=== PATIENT | male | born 1930 | race Caucasian/White ===

== ENCOUNTER → 2016-12-29 | Outpatient (CLI) | payer OTHER, MEDICARE | LOC: BHLMT 10:00 | PROVIDERS: ATTEND Internal Medicine Cardiovascular Disease | DX: I35.1 Nonrheumatic aortic (valve) insufficiency (principal); I34.0 Nonrheumatic mitral (valve) insufficiency; I36.1 Nonrheumatic tricuspid (valve) insufficiency | CPT/HCPCS: 93306-PO ==

== ENCOUNTER 2017-05-13 09:10 | Inpatient (IN) | payer OTHER, MEDICARE ==
[2017-05-13] MEDS ORDERED: ASPIRIN EC 325 MG TAB PO ONE ×2 (09:14→09:36)
[2017-05-13] MEDS ORDERED: DIAZEPAM 5 MG TAB PO ONE (09:14)
[2017-05-13] MEDS ORDERED: NS 1,000 ML IV ONE (09:14)
[2017-05-13] MEDS ORDERED: FAMOTIDINE 20 MG TAB PO ONE (09:14)
[2017-05-13] MEDS ORDERED: diphenhydrAMINE 25 MG CAP PO ONE ×2 (09:14→09:36)
--- NOTE | 2017-05-13 09:34 | CPEKG ---
Heart Rate: 52 RR Interval: 1154 P-R Interval: 180 QRSD Interval: 112 QT Interval: 412 QTC Interval: 384 P [place]: 63 QRS [place]: -36 T Wave [place]: -1 EKG Severity - ABNORMAL ECG - EKG Impression: SINUS RHYTHM EKG Impression: MULTIFORM VENTRICULAR PREMATURE COMPLEXES EKG Impression: NONSPECIFIC IVCD WITH LAD EKG Impression: LOW VOLTAGE IN FRONTAL LEADS Electronically Signed By: Dalton Schneider 13-May-2017 16:05:58
[2017-05-13] MEDS ORDERED: FAMOTIDINE 20 MG TAB ONE (09:36)
[2017-05-13] MEDS ORDERED: DIAZEPAM 5 MG TAB ONE (09:37)
[2017-05-13 09:52] LABS: PLATELET COUNT 185 10^3/uL (150-400)
[2017-05-13 10:03] LABS: INR 1.12 (0.83-1.16); PROTIME(PATIENT) 14.6 SEC (12.0-15.0)
--- NOTE | 2017-05-13 11:18 | PDPROPOC ---
Sedation Plan of Care Sedation Plan of Care: vital signs stable, mental status noted, patient educated of risks, benefits, alternatives, patient can tolerate sedation ASA Classification: ASA 2 Planned drugs: fentanyl, midazolam Mallampati Score: Class 2 Mallampati Reference Image: Patient passed 3-3-2 rule?: Yes
--- NOTE | 2017-05-13 11:18 | PDHPUP ---
History & Physical Update H&P update statement: This history and physical update is based on an assessment of the patient which was completed after admission or registration (within 24 hours), but prior to the surgery/procedure. H&P update: H&P reviewed & patient examined, no change in patient's condition since H&P completed
[2017-05-13] MEDS ORDERED: LIDOCAINE 1% 300 MG/30 ML SDV ONE (11:33)
[2017-05-13] MEDS ORDERED: fentaNYL 100 MCG/2 ML INJ ONE (11:33)
[2017-05-13] MEDS ORDERED: MIDAZOLAM 2 MG/2 ML VIAL ONE ×2 (11:34)
[2017-05-13] MEDS ORDERED: IOPAMIDOL (ISOVUE-370) 150 ML BTL IV ONE ×2 (11:34→12:08)
--- NOTE | 2017-05-13 13:12 | CPIP ---
[f rep st] INVASIVE CARDIAC PROCEDURE DATE OF PROCEDURE: 05/13/2017 PROCEDURES: 1. Coronary angiography. 2. Left ventriculography. 3. Right heart catheterization. INDICATION: Preoperative evaluation prior to open heart surgery. ACCESS: The patient was prepped and draped in a sterile fashion. 1% lidocaine was used to anestheti ze the right inguinal region. A 6-Malagasy introducer sheath was placed selectively in the right commo n femoral artery via modified Seldinger technique. A 7-Malagasy introducer sheath was placed selective ly in the right common femoral vein via modified Seldinger technique. CORONARY ANGIOGRAPHY: A 6-Malagasy JL4.5 catheter was advanced into the left main coronary artery and images obtained. The left main coronary artery trifurcated into the LAD, ramus, and circumflex coron leah arteries. The left main coronary artery appeared to have an ostial 50% stenosis present. The le ft anterior descending coronary artery had mild diffuse disease in the proximal and mid segments. In the proximal segment, there was a segmental 20% to 30% stenosis present. The ramus coronary artery was a moderate-sized vessel. The ramus coronary artery appeared normal. The circumflex coronary art kathya was nondominant. The circumflex coronary artery had a single discrete 40% to 50% stenosis in the mid vessel. A 6-Malagasy JR4 was advanced into the right coronary artery and images obtained. The ri ght coronary artery was dominant. The right coronary artery had an eccentric 50% to 70% stenosis in the mid vessel. LEFT VENTRICULOGRAPHY: A 6-Malagasy pigtail catheter was advanced into the left ventricle and images o btained. The left ventricle was normal in size, with normal systolic function. The estimated ejecti on fraction was 65%. RIGHT HEART CATHETERIZATION: A right heart catheter was advanced into the right atrium and the press ure obtained. The right atrial pressure was 7 mmHg. The catheter was then advanced into the right v entricle and the pressure obtained. The right ventricular pressure was 36/8 mmHg. The catheter was then advanced into the pulmonary artery and the pressure obtained. The pulmonary artery pressure was 39/9 mmHg. The catheter was then advanced in the wedge position and pressure obtained. The pulmona ry capillary wedge pressure was 14 mmHg. The cardiac output was 6.19. The cardiac index was 3.3. COMPLICATIONS: None. CONCLUSIONS: 1. 50% ostial left main. 2. 40% to 50% stenosis in the mid circumflex coronary artery. 3. 50% to 70% stenosis in the mid right coronary artery. 4. Normal left ventricular size and systolic function. 5. No evidence of pulmonary hypertension on right heart catheterization. 6. Consider coronary artery bypass graft at the time of surgery. /[id number]/MODL
--- NOTE | 2017-05-13 14:00 | PDGENHP ---
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 Since last clinic exam in January, he is now experiencing palpitations on a daily basis but otherwise feels about the same. Still able to perform ADLs without perceivable limitation and walk up to 3 miles 3-4x/weekly. No wt gain, lower extremity edema , presyncope, orthopnea, chest pressure, or abdominal discomfort. Today's imaging notable for 50% distal LM stenosis and 50-70% mid vessel stenosis of dominant RCA. History Information - Allergies/Home Medication List Allergies/Adverse Reactions: No Known Allergies Allergy (Verified 04/29/17 16:03) Home Medications: Aspirin [Aspirin 81mg (*)] 81 mg PO DAILY 04/29/17 [Last Taken Unknown] Finasteride [Proscar 5 MG (*)] 5 mg PO HS 04/29/17 [Last Taken Unknown] Metoprolol Succinate Xr [Toprol Xl 25 mg (*)] 25 mg PO HS 04/29/17 [Last Taken Unknown] Omeprazole [Prilosec 20 mg] 20 mg PO DAILY 04/29/17 [Last Taken Unknown] Rosuvastatin Calcium [Crestor 20mg (*)] 20 mg PO HS 04/29/17 [Last Taken Unknown ] Terazosin HCl [Hytrin 5 MG (*)] 5 mg PO HS 04/29/17 [Last Taken Unknown] Acetaminophen [Tylenol 325mg (*)] 325 mg PO DAILY PRN 05/12/17 [Last Taken Unknown] Herbals/Supplements -Info Only 1 ea PO DAILY 05/12/17 [Last Taken Unknown] I have personally reviewed and updated: family history, medical history, social history, surgical history - Past Medical History coronary artery disease (nonobstructive by cath 2001), cancer (basal cell skin) , cataracts, hearing deficit, hypertension, hyperlipidemia Additional medical history: carotid atherosclerosis. freq PACs and PVCs. 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 GERD. BPH - Surgical History Reports: appendectomy, spinal surgery (L3-4 fusion) - Social History Smoking Status: Never smoked Alcohol Use: None Additional social history: Lives with who has Parkinson's and requires assistance. Still drives. Review of Systems Review of Systems: ROS: 10pt was reviewed & negative except for what was stated in HPI & below Physical Exam Physical Exam: supine, post cath, rt groin hemostasis protocol Constitutional: no apparent distress Eyes: anicteric sclera Ears, Nose, Mouth, Throat: moist mucous membranes, hard of hearing, other (no obvious dental disrepair) Cardiovascular: diastolic murmur, bradycardia (w premature beats), other (water hammer pulses) Peripheral Pulses: 3+: femoral (L), dorsalis-pedis (R), dorsalis-pedis (L) Respiratory: no respiratory distress, clear to auscultation Gastrointestinal: soft, non-tender abdomen Skin: warm, normal color Musculoskeletal: other (symmetric tone) Lab Data & Imaging Review 05/13/17 09:40 05/13/17 09:40 WBC 5.25 10^3/uL (3.80-9.50) 05/13/17 09:40 RBC 4.64 10^6/uL (4.40-6.38) 05/13/17 09:40 Hgb 14.2 g/dL (13.7-17.5) 05/13/17 09:40 Hct 42.5 % (40.0-51.0) 05/13/17 09:40 MCV 91.6 fL (81.5-99.8) 05/13/17 09:40 MCH 30.6 pg (27.9-34.1) 05/13/17 09:40 MCHC 33.4 g/dL (32.4-36.7) 05/13/17 09:40 RDW 13.0 % (11.5-15.2) 05/13/17 09:40 Plt Count 185 10^3/uL (150-400) 05/13/17 09:40 MPV 10.5 fL (8.7-11.7) 05/13/17 09:40 Neut % (Auto) 53.3 % (39.3-74.2) 05/13/17 09:40 Lymph % (Auto) 36.0 % (15.0-45.0) 05/13/17 09:40 [place] % (Auto) 7.8 % (4.5-13.0) 05/13/17 09:40 Eos % (Auto) 2.1 % (0.6-7.6) 05/13/17 09:40 Baso % (Auto) 0.6 % (0.3-1.7) 05/13/17 09:40 Nucleat RBC Rel Count 0.0 % (0.0-0.2) 05/13/17 09:40 Absolute Neuts (auto) 2.80 10^3/uL (1.70-6.50) 05/13/17 09:40 Absolute Lymphs (auto) 1.89 10^3/uL (1.00-3.00) 05/13/17 09:40 Absolute Monos (auto) 0.41 10^3/uL (0.30-0.80) 05/13/17 09:40 Absolute Eos (auto) 0.11 10^3/uL (0.03-0.40) 05/13/17 09:40 Absolute Basos (auto) 0.03 10^3/uL (0.02-0.10) 05/13/17 09:40 Absolute Nucleated RBC 0.00 10^3/uL (0-0.01) 05/13/17 09:40 Immature Gran % 0.2 % (0.0-1.1) 05/13/17 09:40 Immature Gran # 0.01 10^3/uL (0.00-0.10) 05/13/17 09:40 PT 14.6 SEC (12.0-15.0) 05/13/17 09:40 INR 1.12 (0.83-1.16) 05/13/17 09:40 Sodium 142 mEq/L (134-144) 05/13/17 09:40 Potassium 4.6 mEq/L (3.5-5.2) 05/13/17 09:40 Chloride 105 mEq/L (97-110) 05/13/17 09:40 Carbon Dioxide 24 mEq/l (22-31) 05/13/17 09:40 Anion Gap 13 mEq/L (8-16) 05/13/17 09:40 BUN 19 mg/dL (7-23) 05/13/17 09:40 Creatinine 1.1 mg/dL (0.7-1.3) 05/13/17 09:40 Estimated GFR > 60 05/13/17 09:40 Glucose 93 mg/dL (70-100) 05/13/17 09:40 Calcium 10.2 mg/dL (8.5-10.4) 05/13/17 09:40 Magnesium 2.0 mg/dL (1.6-2.3) 05/13/17 09:40 Triglycerides 72 mg/dL (40-150) 05/13/17 09:40 Cholesterol 146 mg/dL (140-220) 05/13/17 09:40 Cholesterol Risk Factr 0.5 (0.2-1.0) 05/13/17 09:40 LDL Cholesterol, Calc 83 mg/dL (80-100) 05/13/17 09:40 LDL Risk Factor 0.8 (0.2-1.0) 05/13/17 09:40 VLDL Cholesterol 14 mg/dL (8-25) 05/13/17 09:40 Non-HDL Cholesterol 97 mg/dL (90-129) 05/13/17 09:40 HDL Cholesterol 49 mg/dL (40-65) 05/13/17 09:40 LDL/HDL Ratio 1.69 RATIO (1.00-3.64) 05/13/17 09:40 Cholesterol/HDL Ratio 2.98 RATIO (1.00-4.97) 05/13/17 09:40 Patient ABO/Rh A POSITIVE 05/13/17 09:40 Antibody Screen NEGATIVE 05/13/17 09:40 Imaging Review: Carotid US: extensive plaquing without hemodynamically significant stenoses, antegrade vertebral flow bilat RHC: PA 39/9, PCWP 14, CI 3.3 Visualized and Interpreted EKG results: Yes EKG Interpretation: Positive for: normal sinsus rhythm (maninder), other (IVCD, PAC , PVC) Assessment & Plan Assessment: 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
[2017-05-13] MEDS: ACETAMINOPHEN 325 MG TAB PO PRN (17:21)
[2017-05-13] MEDS ORDERED: CHLORHEXIDINE GLUC HIBICLENS 118 ML BTL TP SCH ×2 (21:00→23:30)
[2017-05-13] MEDS ORDERED: METOPROLOL SUCCINATE XR 25 MG TAB PO SCH (21:00)
[2017-05-13] MEDS: ROSUVASTATIN CALCIUM 20 MG TAB PO SCH (23:57)
[2017-05-13] MEDS: FINASTERIDE 5 MG TAB PO SCH (23:57)
[2017-05-14] MEDS: TERAZOSIN HCL 5 MG CAP PO SCH (00:01)
[2017-05-14] MEDS: MUPIROCIN 2% 22 GM OINT NS SCH ×3 (00:01→20:51)
[2017-05-14] MEDS ORDERED: niCARdipine/NACL 200 ML IV ONE (06:00)
[2017-05-14] MEDS ORDERED: SODIUM BICARBONATE 20 MEQ, LIDOCAINE 1% 10 ML in NORMOSOL-R 1,000 ML MISC ONE (06:00)
[2017-05-14] MEDS ORDERED: AMINOCAPROIC ACID 5 GM/20 ML VIAL IV ONE (06:00)
[2017-05-14] MEDS ORDERED: INSULIN REGULAR HUMAN 100 UNIT in NS 100 ML IV ONE (06:00)
[2017-05-14] MEDS ORDERED: NOREPINEPHRINE BITARTRATE 16 MG in NS 250 ML IV ONE (06:00)
[2017-05-14] MEDS ORDERED: PHENYLEPHRINE HCL 50 MG in NS 250 ML IV ONE (06:00)
[2017-05-14] MEDS ORDERED: TRANEX ACID 1,000 MG/NS 100 ML IV ONE ×2 (06:00)
[2017-05-14] MEDS ORDERED: MANNITOL 25% 12.5 GM/50 ML VIAL IVP ONE (06:00)
[2017-05-14] MEDS ORDERED: ceFAZolin 2 GM/SWFI 2 GM/20 ML SYR IVP ONE (06:00)
[2017-05-14] MEDS ORDERED: CITRATE DEXTROSE SOLN 500 ML BAG MISC ONE (06:00)
[2017-05-14] MEDS ORDERED: VERAPAMIL 5 MG, NITROGLYCERIN 2.5 MG, HEPARIN 500 UNIT, SODIUM BICARBONATE 0.2 MEQ in L... MISC ONE (06:00)
[2017-05-14] MEDS ORDERED: LR 1,000 ML IV ONE (06:25)
[2017-05-14] MEDS ORDERED: ALBUMIN 5% 250 ML BOTTLE IV ONE (06:31)
[2017-05-14] MEDS ORDERED: PROTAMINE SULFATE 50 MG/5 ML VIAL IVP ONE (06:31)
[2017-05-14] MEDS ORDERED: NA BICARBONATE 50 MEQ/50 ML VIAL ONE (06:32)
[2017-05-14] MEDS ORDERED: CALCIUM CHLORIDE 1 GM/10 ML INJ ONE (06:32)
[2017-05-14] MEDS ORDERED: LIDOCAINE 2% 100 MG/5 ML SYR ONE (06:32)
[2017-05-14] MEDS ORDERED: MILRINONE/DEXTROSE/100 ML BAG IV ONE (06:32)
[2017-05-14] MEDS ORDERED: DOPamine/DEXTROSE/250 ML BAG IV ONE ×2 (06:33→14:39)
[2017-05-14] MEDS ORDERED: HEPARIN 10,000 UNIT/10 ML MDV ONE (06:33)
[2017-05-14] MEDS ORDERED: CITRATE DEXTROSE SOLN 500 ML BAG ONE (06:33)
[2017-05-14] MEDS ORDERED: niCARdipine/NACL/200 ML BAG IV ONE (06:33)
[2017-05-14] MEDS ORDERED: ceFAZolin 1 GM VIAL ONE (06:34)
[2017-05-14] MEDS ORDERED: MAGNESIUM SULFATE 1 GM/2 ML VIAL ONE (06:34)
[2017-05-14] MEDS ORDERED: ADENOSINE 6 MG/2 ML VIAL ONE (06:34)
[2017-05-14] MEDS ORDERED: AMIODARONE HCL 150 MG/3 ML VIAL ONE (06:34)
[2017-05-14] MEDS ORDERED: methylPREDNISolone SOD SUCC 1 GM/8 ML VIAL ONE (06:34)
[2017-05-14] MEDS ORDERED: MINERAL OIL 10 ML VIAL ONE (06:49)
[2017-05-14] MEDS ORDERED: PAPAVERINE HCL 60 MG/2 ML SDV ONE (06:49)
[2017-05-14] MEDS ORDERED: VERAPAMIL 5 MG/2 ML VIAL ONE (06:49)
[2017-05-14] MEDS ORDERED: PROPOFOL 200 MG/20 ML VIAL ONE (06:54)
[2017-05-14] MEDS ORDERED: fentaNYL 250 MCG/5 ML INJ ONE ×2 (06:54)
[2017-05-14] MEDS ORDERED: MIDAZOLAM 2 MG/2 ML VIAL ONE (06:55)
[2017-05-14] MEDS ORDERED: PHENYLEPHRINE 10 MG/ML SDV ONE (06:57)
[2017-05-14] MEDS ORDERED: ROCURONIUM 100 MG/10 ML VIAL ONE (06:57)
[2017-05-14] MEDS ORDERED: LIDOCAINE 2% 5 ML SDV ONE (06:57)
[2017-05-14] MEDS ORDERED: MIDAZOLAM 2 MG/2 ML VIAL IVP ONE (07:01)
--- NOTE | 2017-05-14 07:57 | PDANEPAE ---
ANE History of Present Illness cab, mvr, tvA, maze, poss avr ANE Past Medical History - Cardiovascular History Hx Hypertension: No Hx Arrhythmias: Yes Hx Chest Pain: No Hx Coronary Artery / Peripheral Vascular Disease: Yes Hx CHF / Valvular Disease: Yes Hx Palpitations: Yes Cardiovascular History Comment: afib - Pulmonary History Hx COPD: No Hx Asthma/Reactive Airway Disease: No Hx Recent Upper Respiratory Infection: No Hx Oxygen in Use at Home: No Hx Sleep Apnea: No Sleep Apnea Screening Result - Last Documented: Positive - Neurologic History Hx Cerebrovascular Accident: No Hx Seizures: No Hx Dementia: No - Endocrine History Hx Diabetes: No Hypothyroid: No Hyperthyroid: No - Renal History Hx Renal Disorders: No - Liver History Hx Hepatic Disorders: No - Neurological & Psychiatric Hx Hx Neurological and Psychiatric Disorders: No - Cancer History Hx Cancer: Yes Cancer History Comment: skin cancer - Congenital Disorder History Hx Congenital Disorders: No - GI History GERD: moderate Hx Gastrointestinal Disorders: No - Chronic Pain History Chronic Pain: No - Surgical History Prior Surgeries: none ANE Review of Systems Review of Systems: - Exercise capacity METS (RN): 4 METS ANE Patient History - Allergies Allergies/Adverse Reactions: No Known Allergies Allergy (Verified 05/14/17 06:39) - Home Medications Home Medications: Aspirin [Aspirin 81mg (*)] 81 mg PO DAILY 04/29/17 [Last Taken Unknown] Finasteride [Proscar 5 MG (*)] 5 mg PO HS 04/29/17 [Last Taken Unknown] Metoprolol Succinate Xr [Toprol Xl 25 mg (*)] 25 mg PO HS 04/29/17 [Last Taken Unknown] Omeprazole [Prilosec 20 mg] 20 mg PO DAILY 04/29/17 [Last Taken Unknown] Rosuvastatin Calcium [Crestor 20mg (*)] 20 mg PO HS 04/29/17 [Last Taken Unknown ] Terazosin HCl [Hytrin 5 MG (*)] 5 mg PO HS 04/29/17 [Last Taken Unknown] Acetaminophen [Tylenol 325mg (*)] 325 mg PO DAILY PRN 05/12/17 [Last Taken Unknown] Herbals/Supplements -Info Only 1 ea PO DAILY 05/12/17 [Last Taken Unknown] - NPO status NPO Status: no food or drink >8 hours NPO Since - Liquids (Date): 05/14/17 NPO Since - Liquids (Time): 00:00 NPO Since - Solids (Date): 05/14/17 NPO Since - Solids (Time): 00:00 - Anes Hx Anes Hx: no prior problems - Smoking Hx Smoking Status: Never smoked - Alcohol Use Alcohol Use: None - Family Anes Hx Family Hx Anesthesia Complications: none ANE Labs/Vital Signs - Labs Result Diagrams: 05/13/17 09:40 05/14/17 03:12 - Vital Signs Blood Pressure: 121/67 Heart Rate: 67 Respiratory Rate: 16 O2 Sat (%): 91 Height: 177.8 cm Weight: 67.5 kg ANE Physical Exam - Airway Mallampati Score: Class 2 Mouth exam: normal dental/mouth exam - Pulmonary Pulmonary: no respiratory distress - Cardiovascular Cardiovascular: regular rate and rhythym - ASA Status ASA Status: III ANE Anesthesia Plan Anesthesia Plan: general endotracheal anesthesia Lines/Monitors: arterial line, central line, RIK
[2017-05-14] MEDS ORDERED: LABETALOL HCL 5 MG/ML 20 ML MDV ONE (08:12)
[2017-05-14] MEDS ORDERED: NITROGLYCERIN 50 MG/10 ML SDV IV ONE (08:14)
[2017-05-14] MEDS ORDERED: GLYCOPYRROLATE 0.2 MG/1 ML VIAL ONE (08:21)
[2017-05-14] MEDS: SENNOSIDES/DOCUSATE SODIUM TAB PO SCH ×2 (09:02→15:06)
--- NOTE | 2017-05-14 09:53 | ASMTCASEMG ---
Living Arrangements What is your living Answers: With Spouse arrangement? Who do you live with? Type Of Residence What kind of residence do Answers: House you live in? Discharge Plan Comments Coordination Status Comments Notes: Pt is a 86 y/o man admitted for MR, TR, AI, CAD and A-Fib. Pt is scheduled to have open heart surgery today. Prior to coming to the hospital pt was living independently w/ his . Needs are TBD at this time. CM to follow once out of surgery. Plan: TBD Date Signed: 05/14/2017 09:52 AM Electronically Signed By:IRENE Alarcon
[2017-05-14] MEDS ORDERED: SUGAMMADEX SODIUM 200 MG/2 ML VIAL IVP ONE (11:46)
[2017-05-14] MEDS ORDERED: NS 1,000 ML IV SCH (12:30)
[2017-05-14] MEDS ORDERED: LACTULOSE 20 GM/30 ML UDCUP PO PRN (12:30)
[2017-05-14] MEDS ORDERED: INSULIN REGULAR HUMAN 100 UNIT in NS 100 ML IV SCH (12:30)
[2017-05-14] MEDS ORDERED: MEPERIDINE 25 MG/ML SYR IVP PRN (12:30)
[2017-05-14] MEDS ORDERED: POTASSIUM Cl (KCl) 50 ML IV PRN (12:30)
[2017-05-14] MEDS ORDERED: D50W 25 GM/50 ML SYR IVP PRN (12:30)
[2017-05-14] MEDS ORDERED: MAGNESIUM SULF 2 GM/WATER 50 ML IV ONE (12:30)
[2017-05-14] MEDS ORDERED: SODIUM CL NASAL 45 ML BTL EACHNARE PRN (12:30)
[2017-05-14] MEDS ORDERED: ONDANSETRON DISINTEGRATING 4 MG TAB PO PRN (12:30)
[2017-05-14] MEDS ORDERED: ONDANSETRON 4 MG/2 ML VIAL IVP PRN (12:30)
[2017-05-14] MEDS ORDERED: METOCLOPRAMIDE 10 MG/2 ML VIAL IVP PRN (12:30)
[2017-05-14] MEDS ORDERED: BISACODYL 10 MG SUPP PR PRN (12:30)
[2017-05-14] MEDS ORDERED: POLYETHYLENE GLYCOL 3350 17 GM PKT PO PRN (12:30)
[2017-05-14] MEDS ORDERED: ACETAMINOPHEN 650 MG SUPP PR PRN (12:30)
[2017-05-14] MEDS ORDERED: MAGNESIUM HYDROXIDE 30 ML UDCUP PO PRN (12:30)
[2017-05-14] MEDS ORDERED: CEPACOL LOZENGE PO PRN (12:30)
[2017-05-14] MEDS ORDERED: PANTOPRAZOLE SODIUM 40 MG VIAL IVP ONE (12:30)
[2017-05-14] MEDS ORDERED: DEXMEDETOMIDINE IN 0.9 % NACL 50 ML IV SCH (13:00)
[2017-05-14] MEDS ORDERED: NALOXONE HCL 0.4 MG/ML INJ IVP PRN (13:12)
--- NOTE | 2017-05-14 13:12 | POSTANESTH ---
Post Anesthetic Evaluation Cardiovascular Status: Normal, Stable Respiratory Status: Normal, Stable Level of Consciousness/Mental Status: Other, See Comment Pain Control: Adequate, Prn Tx Ordered Nausea/Vomiting Control: Adequate, Prn Tx Ordered Complications Possibly Related to Anesthesia: None Noted
[2017-05-14] MEDS ORDERED: SODIUM BICARBONATE 50 MEQ/50 ML SYR ONE (13:18)
--- NOTE | 2017-05-14 13:22 | GOP ---
[f rep st] OPERATIVE REPORT DATE OF OPERATION: 05/14/2017 SURGEON: Kingsley Ruiz DO FURNACE OPERATOR AND TENDER: ROSALIND Gonzales ANESTHESIOLOGIST: Portillo Chen MD PREOPERATIVE DIAGNOSIS: 1. Congestive heart failure, class 2, with severe mitral insufficiency, moderate to severe aortic in sufficiency, and moderate tricuspid insufficiency. 2. Arteriosclerotic heart disease. 3. Longstanding, persistent atrial fibrillation. POSTOPERATIVE DIAGNOSIS: 1. Congestive heart failure, class 2, with severe mitral insufficiency, moderate to severe aortic in sufficiency, and moderate tricuspid insufficiency. 2. Arteriosclerotic heart disease. 3. Longstanding, persistent atrial fibrillation. 4. Enlargement of the ascending aorta. PROCEDURE PERFORMED: 1. Left internal mammary artery to the left anterior descending artery. 2. Aortic valve replacement with #23 Magna bioprosthesis. 3. Mitral valve repair with a #32 Physio annuloplasty ring. 4. Tricuspid valve repair with a 32 mm annuloplasty ring. 5. Lanza Maze for both left and right with radiofrequency and cryoablation with testing. 6. Aortoplasty with reduction of ascending aortic diameter. FINDINGS: Patient presented with early symptoms of congestive heart failure. He had significant alvaro ral insufficiency with pulmonary hypertension, particularly on the stress echo. He was also noted to have at least moderate if not worse aortic insufficiency. The tricuspid valve was dilated with cent ral regurgitation and moderate pulmonary hypertension at 50. For that reason, tricuspid valve repair was suggested. He also had a history of intermittent atrial fibrillation, and he consented to a Lanza Maze-4 procedure. At the time of surgery, he was found to have somewhat enlargement of his aorta to 4.2 cm. Because of the complexity of his procedures and his age, I elected to do a reduction aortop lasty instead of replacing his aorta, which would prolong his cardiopulmonary bypass time and risk, w hich was not discussed before the operation. DESCRIPTION OF PROCEDURE: He was brought to the operating room, intubated, monitoring lines were loree james. He was prepped and draped in sterile classical manner. Sternotomy was performed. Left interna l mammary artery was harvested, it was a 3 mm excellent quality vessel. We then cannulated him in th e transverse arch and bicaval cannulas with tapes. I then performed testing on both pulmonary veins for entrance and exit block; none was identified. We then did pulmonary vein ablation with approxima tely 9 or 10 lesion sets on both pulmonary veins without cross-clamp and retested him, finding both e ntrance and exit block confirmed. We then crossclamped the aorta, arrested the heart with intermittent antegrade cardioplegia, retrogra de cardioplegia, topical hypothermia, and systemic cooling. Initially, the left atrial appendage tip was excised. We completed the appendage to the left superior pulmonary vein ablation lesion set wit h radiofrequency. We then placed a 35 mm clip on the left atrial appendage. I then marked the termi nus of the left and right coronary systems on the coronary sinus. We then exposed the mitral valve t hrough the right superior pulmonary vein. We then completed a roof in 4 lesions with radiofrequency, and then the isthmus lesion with 3 minutes of cryo, both internally and externally communicating wit h the marked coronary sinus. We then evaluated the mitral valve, which had bileaflet prolapse but no chordal rupture. I placed an nuloplasty sutures and secured the mitral valve with a 32 Physio ring, which eliminated all regurgita tion with distention of the ventricle. I then closed the left atrium in a standard fashion. I then exposed the aortic valve and because of the patient's moderate aortic enlargement, I did a preston tical aortotomy down to the noncoronary sinus. I excised the trileaflet valve which was somewhat michelle cified, and retracted centrally. I saw no ability to repair it easily or safely. Excised the valve, sized the patient for a 23 mm Physio valve which was sutured in place with interrupted 2-[address] edgeted mattress sutures secured with Cor-Knots. 2 pieces of felt were placed in the aortotomy incis ion, and the aorta was reduced approximately 1.5 cm for the entire length of the aorta to the cross-c lamp. I then grafted the mammary to a deeply intramuscular LAD diagonal bifurcation, which was free of plaq ue. Because it was so deeply intramuscular, and there was a fair amount of fat on the heart, I was c oncerned about entering the right ventricle. For that reason, I did it at the bifurcation of the rayne gonal to the LAD, which was probed patent. This was tacked to the epicardium. The cross-clamp was r emoved with suction on the ascending aortic vent and LV sump. I then proceeded with securing the caval tapes and performing a vertical atriotomy, a free wall lesio n with radiofrequency and isthmus lesion at approximately 2 o'clock with cryo for 3 minutes, and supe rior and inferior vena caval lines with radiofrequency in the standard fashion. Atriotomy was retrac heaven, and we then secured the tricuspid valve with interrupted 2-0 Tycron sutures placed through a 32 mm Rivas annuloplasty ring. Distention of the tricuspid valve revealed no regurgitation. Atriotom y was closed in a 2-layer fashion. Spontaneous cardiac activity was noted to resume. Two ventricular pacing wires were placed. The patient had been kept in Trendelenburg. The LV sump w as removed when no further air was identified. In Trendelenburg, the LV apex was aspirated as was as cending aortic vent, again, until no air was identified. He was then weaned in Trendelenburg off pum p without difficulty. The heparin was reversed with protamine after the RIK revealed no regurgitatio n, no , and no obstruction of the mitral valve as well as good aortic valvular function and tricuspid valve function without any regurgitation. Heparin was reversed with protamine. The cannu la was removed and oversewn. Two ventricular pacing wires, 2 pleural and 1 mediast[address] pl aced. The thymic fat and pericardium were closed. The chest was closed in standard fashion. The dania wren was extubated in the OR and returned to ICU in stable condition. /[id number]/MODL
[2017-05-14] MEDS ORDERED: SODIUM BICARBONATE 50 MEQ/50 ML SYR IVP ONE (13:30)
[2017-05-14] MEDS ORDERED: KETOROLAC 30 MG/1 ML SDV ONE (13:32)
[2017-05-14] MEDS: ALBUMIN 5% 250 ML IV PRN ×3 (14:31→19:38)
[2017-05-14] MEDS ORDERED: ALBUMIN 5% 250 ML IV ONE ×2 (15:00→15:30)
[2017-05-14] MEDS: ceFAZolin 2 GM/DEXTROSE 100 ML IV SCH ×2 (15:07→21:09)
--- NOTE | 2017-05-14 15:34 | CPEKG ---
Heart Rate: 90 RR Interval: 667 P-R Interval: 126 QRSD Interval: 194 QT Interval: 476 QTC Interval: 583 P [place]: 0 QRS [place]: -73 T Wave [place]: 112 EKG Severity - ABNORMAL ECG - EKG Impression: VENTRICULAR-PACED RHYTHM Electronically Signed By: Jose Rivera 15-May-2017 12:05:13
[2017-05-14] MEDS ORDERED: KETOROLAC 30 MG/1 ML SDV IVP ONE (16:00)
[2017-05-14] MEDS ORDERED: ALBUMIN 5% 500 ML IV ONE (18:30)
[2017-05-14] MEDS: fentaNYL 100 MCG/2 ML INJ IVP PRN ×2 (20:00→21:51)
[2017-05-14] MEDS: ACETAMINOPHEN 325 MG TAB PO PRN (20:47)
[2017-05-14] MEDS: FINASTERIDE 5 MG TAB PO SCH (20:47)
[2017-05-14] MEDS ORDERED: NOREPINEPHRINE BITARTRATE 16 MG in NS 250 ML IV SCH (21:30)
[2017-05-14] MEDS ORDERED: FUROSEMIDE 20 MG/2 ML VIAL IVP ONE (21:45)
[2017-05-15] MEDS: fentaNYL 100 MCG/2 ML INJ IVP PRN ×3 (00:48→07:33)
[2017-05-15 05:38] LABS: PLATELET COUNT 79 10^3/uL (150-400)
[2017-05-15] MEDS: ceFAZolin 2 GM/DEXTROSE 100 ML IV SCH ×3 (05:39→22:00)
[2017-05-15] MEDS: ACETAMINOPHEN 325 MG TAB PO PRN ×2 (05:39→13:55)
[2017-05-15] MEDS: HEPARIN 5,000 UNIT/0.5 ML SYR SC SCH ×3 (05:40→21:08)
[2017-05-15] MEDS: PANTOPRAZOLE SODIUM 40 MG TAB PO SCH ×2 (05:40→09:15)
--- NOTE | 2017-05-15 08:06 | SOAPPROG ---
SOAP Progress Note Assessment/Plan: Assessment: POD#1 CABG x 1 (DICKINSON-LAD), MVA#32 Physio ring, TVA#32 MC3 ring, AVR# 23 Magna bioprosthesis, Reduction aortoplasty, CoxMaze IV Severe MR - Myxomatous valve with dilated annulus. Competency restored with annuloplasty. Extubated in the OR. Hemodynamically stable Vpaced and on low dose levo. Adequately diuresing moderate fluid overload. Antithrombotic prophylaxis as per Maze. Secondary TR - Amenable to annuloplasty. Antithrombotic prophylaxis as per Maze. Moderate AI with dilated asc aorta - Leaflets calcified and retracted, necessitating valve replacement. Enlarged portion of ascending aorta successfully plicated. Antithrombotic prophylaxis as per Maze. Persistent atrial fibrillation - Pronounced maninder preop on BB. Paced rhythm post CM4 for hemodynamic support. Underlying rhythm junctional. At elev risk of PPM given triple valve/Maze. No antinodals unless recurrent AF/RVR. Antithrombotic prophylaxis with Coumadin once coagulopathy resolved and pacing dependence clearer. Target INR 2-3. Duration TBD. Progressive CAD with preserved LV systolic fx - s/p bypass of LAD with arterial graft. Secondary prevention with ASA, BB, and statin when appropriate. Surveillance of residual disease per cards. Acute expected blood loss anemia with thrombocytopenia and mild coagulopathy - Stable s/p 1u PRBC. No evidence active bleeding. Care w anticoag while platelets depressed. Plan: Inc Vpacing to 80 bpm. Cont levo for MAP > 70. Colloid prn CVP < 10. Blakes to bulb suction. Keep lev if unable to wean levo. Keep [place] for accurate I/Os. Activity as tolerated. Probable obs in ICU vs SDU 1 more night. 05/15/17 08:04 Subjective: Energetic and in good spirits. Enjoyed a hearty breakfast. Min incisional discomfort. No acute concerns. Objective: Vital Signs Temp Pulse Resp BP Pulse Ox 36.3 C 74 20 100/47 L 95 05/15/17 07:00 05/15/17 07:51 05/15/17 07:51 05/15/17 07:51 05/15/17 07:51 Laboratory Results 05/15/17 05:30 05/15/17 05:30 05/14/17 05/15/17 05/16/17 05:59 05:59 05:59 Intake Total 750 2791.8 Output Total 205 2585 Balance 545 206.8 PT 14.6 SEC (12.0-15.0) 05/13/17 09:40 INR 1.12 (0.83-1.16) 05/13/17 09:40 Levo @ 2 mcg for MAPs 70s. Vpaced at 74. Underlying JR 50s. Min suppl O2 req. CXR -> No PTX, no pulm vasc congestion, inc gastric air elev LHD, bibasilar atelectasis. CTOP sl elev. Balanced I/Os. Labs as expected. Platelet count low but stable. Physical Exam - Physical Exam General Appearance: alert, no apparent distress Respiratory: crackles (scattered bilat), other (blakes x 3 y-d to pleurovac, serosang drainage, no tidal, no air leak) Cardiac/Chest: regular rate, rhythm (paced), friction rub, other (Sternotomy CDI. Vwires intact.) Abdomen: non-tender, soft Skin: warm/dry Extremities: swelling (trace) ICD10 Worksheet Patient Problems: Problems Problem Status Onset Acute blood loss anemia Acute S/P CABG x 1 Acute ~05/14/17 S/P ablation of atrial fibrillation Acute ~05/14/17 S/P aortic valve replacement and aortoplasty Acute ~05/14/17 S/P mitral valve repair Acute ~05/14/17 S/P tricuspid valve repair Acute ~05/14/17 Ascending aorta dilatation Chronic CAD in [place]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
[2017-05-15] MEDS: ASPIRIN 81 MG CHEWABLE TAB PO SCH (09:15)
[2017-05-15] MEDS: ALBUMIN 5% 250 ML IV PRN (09:16)
[2017-05-15] MEDS: MUPIROCIN 2% 22 GM OINT NS SCH ×2 (09:17→22:00)
[2017-05-15] MEDS ORDERED: traMADol 50 MG TAB PO PRN (10:00)
[2017-05-15] MEDS ORDERED: FUROSEMIDE 40 MG/4 ML VIAL ONE (12:02)
[2017-05-15] MEDS ORDERED: FUROSEMIDE 40 MG/4 ML VIAL IVP ONE (12:30)
[2017-05-15] MEDS: HYDROCODONE/APAP 5/325 TAB PO PRN ×2 (15:28→19:29)
--- NOTE | 2017-05-15 15:28 | PDINTPN ---
Human Resources Vice President Progress Note Assessment/Plan: Assessment: S/P AVR, MVr, TVr, Maze: Doing well post-op. Anemia: Hgb Stable, no signs of significant blood loss. Hyperglycemia: Mild, rending down, not requiring insulin Plan: Increase activity. Follow H/H, glucose. Keep in ICU for now. 05/15/17 15:29 Subjective: C/O back pain. Denies dyspnea, chest pain. Objective: Vital Signs Temp Pulse Resp BP Pulse Ox 36.6 C 65 20 117/60 96 05/15/17 12:00 05/15/17 14:00 05/15/17 14:00 05/15/17 14:00 05/15/17 14:00 Laboratory Results 05/15/17 05:30 05/15/17 12:30 05/14/17 05/15/17 05/16/17 05:59 05:59 05:59 Intake Total 750 2791.8 150 Output Total 205 2585 723 Balance 545 206.8 -573 PT 14.6 SEC (12.0-15.0) 05/13/17 09:40 INR 1.12 (0.83-1.16) 05/13/17 09:40 CXR: Persistent but improved CHF. Left diaphragm elevated. Images reviewed by me. Physical Exam - Physical Exam General Appearance: alert, no apparent distress EENT: normal ENT inspection Neck: normal inspection Respiratory: lungs clear, normal breath sounds Cardiac/Chest: regular rate, rhythm, No edema Abdomen: normal bowel sounds, non-tender, soft Skin: normal color, warm/dry Extremities: normal inspection Neuro/Psych: alert, normal mood/affect, oriented x 3 ICD10 Worksheet Patient Problems: Problems Problem Status Onset Acute blood loss anemia Acute S/P CABG x 1 Acute ~05/14/17 S/P ablation of atrial fibrillation Acute ~05/14/17 S/P aortic valve replacement and aortoplasty Acute ~05/14/17 S/P mitral valve repair Acute ~05/14/17 S/P tricuspid valve repair Acute ~05/14/17 Ascending aorta dilatation Chronic CAD in [place]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
--- NOTE | 2017-05-15 15:38 | GCON ---
[f rep st] CONSULTATION PULMONARY/CRITICAL CARE CONSULTATION DATE OF CONSULTATION: 05/14/2017 REFERRING PHYSICIAN: Kingsley Ruiz DO REASON FOR REFERRAL: Evaluation and management of anemia and hyperglycemia. HISTORY: The patient is an 86-year-old male with a history of chronic atrial fibrillation, rate cont rol with beta blockers, who was seen by Dr. Ruiz for evaluation of MR, TR, and aortic insufficiency. He is felt to be a candidate for surgery, and so today he underwent an aortic valve replacement, CA BG x1, and mitral and tricuspid valve repairs. His intraoperative course was unremarkable. He was a dmitted to the intensive care unit already extubated. He is quite sedated but does respond to touch and loud voice, able to follow simple commands. PAST MEDICAL HISTORY: 1. Coronary artery disease. 2. Hypertension. 3. Chronic atrial fibrillation. MEDICATIONS: At the time of admission include Hytrin, Proscar, Prilosec, Toprol, Crestor, aspirin. ALLERGIES: None. SOCIAL HISTORY: The patient does not drink or smoke. FAMILY HISTORY: Unremarkable. REVIEW OF SYSTEMS: Unobtainable due to the patient's sedation/somnolence. PHYSICAL EXAMINATION: GENERAL: As mentioned, the patient is sedated but arouses weakly to loud voic e/touch. VITAL SIGNS: His blood pressure is 105/58 with a heart rate of 90. He is afebrile. Oxyge n saturations are 99% on 6 L simple mask. HEENT: Normocephalic and atraumatic. No icterus. NECK: No adenopathy. Trachea is midline. CHEST: Clear to auscultation. CARDIAC: Regular rate and rhyt hm, without murmur. ABDOMEN: Soft, nontender. Bowel sounds are present. EXTREMITIES: No clubbing , cyanosis, or edema. NEURO: The patient is sedated but arousable. He is able to move all 4 extrem ities. LABORATORY: Chemistry group is remarkable only for a glucose of 140. Hemoglobin is 10.2, down from 14.2 preoperatively. An INR was 1.1 yesterday. An arterial blood gas shows a pH of 7.32 with a pO2 of 103, a CO2 of 43 and a bicarbonate of 24 on 60% oxygen. A chest x-ray shows some mild congestive heart failure. Images reviewed by me. ASSESSMENT: 1. Status post open heart surgery, with aortic valve replacement, mitral and tricuspid valve repairs , a maze procedure, and a coronary artery bypass graft x1. The patient is recovering well postoperat ively and is hemodynamically stable. 2. Anemia. This is likely due to expected intraoperative blood loss as well as volume expansion. A s mentioned, the CVP and blood pressure are okay. There is minimal drainage from the chest tubes. 3. Hyperglycemia. This is mild. The patient has no prior history of hyperglycemia. RECOMMENDATIONS: 1. Continue postoperative ICU care. 2. Follow hemoglobin to evaluate for ongoing/worsening anemia. 3. Frequent blood sugar checks to assess for worsening hyperglycemia which may warrant treatment. /[id number]/MODL
[2017-05-15] MEDS: FINASTERIDE 5 MG TAB PO SCH (19:29)
[2017-05-15] MEDS: TERAZOSIN HCL 5 MG CAP PO SCH (22:00)
[2017-05-16] MEDS: HYDROCODONE/APAP 5/325 TAB PO PRN ×3 (00:25→17:09)
[2017-05-16 05:36] LABS: PLATELET COUNT 70 10^3/uL (150-400)
[2017-05-16] MEDS: HEPARIN 5,000 UNIT/0.5 ML SYR SC SCH (05:46)
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
[2017-05-16] MEDS ORDERED: oxyCODONE IR 5 MG TAB PO PRN (08:58)
[2017-05-16] MEDS: POTASSIUM CL 20 MEQ TAB PO SCH (09:05)
[2017-05-16] MEDS: PANTOPRAZOLE SODIUM 40 MG TAB PO SCH (09:05)
[2017-05-16] MEDS: ASPIRIN 81 MG CHEWABLE TAB PO SCH (09:05)
[2017-05-16] MEDS: FUROSEMIDE 40 MG TAB PO SCH (09:05)
[2017-05-16] MEDS: MUPIROCIN 2% 22 GM OINT NS SCH (09:12)
[2017-05-16] MEDS ORDERED: FUROSEMIDE 40 MG/4 ML VIAL IVP SCH (10:15)
[2017-05-16] MEDS: SENNOSIDES/DOCUSATE SODIUM TAB PO SCH ×2 (11:05→20:15)
[2017-05-16] MEDS ORDERED: WARFARIN SODIUM 2.5 MG TAB PO ONE (16:00)
[2017-05-16] MEDS ORDERED: FUROSEMIDE 40 MG/4 ML VIAL ONE (17:51)
[2017-05-16] MEDS ORDERED: FUROSEMIDE 20 MG/2 ML VIAL IVP ONE (18:00)
[2017-05-16] MEDS: FINASTERIDE 5 MG TAB PO SCH (20:15)
[2017-05-16] MEDS: TERAZOSIN HCL 5 MG CAP PO SCH (20:15)
[2017-05-17 05:47] LABS: INR 1.62 (0.83-1.16); PROTIME(PATIENT) 19.4 SEC (12.0-15.0)
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
[2017-05-17] MEDS: PANTOPRAZOLE SODIUM 40 MG TAB PO SCH (07:47)
[2017-05-17] MEDS: HYDROCODONE/APAP 5/325 TAB PO PRN ×2 (07:47→19:50)
[2017-05-17] MEDS: POTASSIUM CL 20 MEQ TAB PO SCH (07:47)
[2017-05-17] MEDS: SENNOSIDES/DOCUSATE SODIUM TAB PO SCH ×2 (07:47→19:51)
[2017-05-17] MEDS: ASPIRIN 81 MG CHEWABLE TAB PO SCH (07:48)
[2017-05-17] MEDS: FUROSEMIDE 40 MG TAB PO SCH (07:48)
--- NOTE | 2017-05-17 14:04 | ASMTCMCOM ---
CM Note CM Note Notes: 05/17/2017 Case Management Note Reviewed chart, spoke with RN and PT. Pt has strong family support. PT recommending home with 24 hour supervision and family is capable of providing that level of care. Case Management d/c poc: anticipating home with family support with eventual cardiac outpatient rehab. Case Management to follow. Date Signed: 05/17/2017 02:03 PM Electronically Signed By:Jeni Mcgee RN
[2017-05-17] MEDS ORDERED: WARFARIN SODIUM 1 MG TAB PO ONE (16:00)
[2017-05-17] MEDS: TERAZOSIN HCL 5 MG CAP PO SCH (19:51)
[2017-05-17] MEDS: FINASTERIDE 5 MG TAB PO SCH (19:52)
[2017-05-17] MEDS: ROSUVASTATIN CALCIUM 20 MG TAB PO SCH (20:02)
[2017-05-18] MEDS: HYDROCODONE/APAP 5/325 TAB PO PRN ×2 (03:55→20:24)
[2017-05-18 04:04] LABS: INR 4.12 (0.83-1.16); PROTIME(PATIENT) 39.5 SEC (12.0-15.0)
[2017-05-18] MEDS: SENNOSIDES/DOCUSATE SODIUM TAB PO SCH ×2 (07:47→20:23)
[2017-05-18] MEDS: FUROSEMIDE 40 MG TAB PO SCH (07:47)
[2017-05-18] MEDS: POTASSIUM CL 20 MEQ TAB PO SCH (07:47)
[2017-05-18] MEDS: ASPIRIN 81 MG CHEWABLE TAB PO SCH (07:47)
[2017-05-18] MEDS: PANTOPRAZOLE SODIUM 40 MG TAB PO SCH (07:48)
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
[2017-05-18 10:02] LABS: INR 2.81 (0.83-1.16); PROTIME(PATIENT) 29.5 SEC (12.0-15.0)
[2017-05-18] MEDS: TERAZOSIN HCL 5 MG CAP PO SCH (20:23)
[2017-05-18] MEDS: ROSUVASTATIN CALCIUM 20 MG TAB PO SCH (20:23)
[2017-05-18] MEDS: FINASTERIDE 5 MG TAB PO SCH (20:24)
[2017-05-19 05:58] LABS: INR 2.15 (0.83-1.16)
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
[2017-05-19] MEDS: ACETAMINOPHEN 325 MG TAB PO PRN ×2 (08:05→20:54)
--- NOTE | 2017-05-19 08:25 | CPEKG ---
Heart Rate: 85 RR Interval: 706 P-R Interval: 176 QRSD Interval: 90 QT Interval: 348 QTC Interval: 414 P Clayton: 104 QRS Clayton: -13 T Wave Clayton: 39 EKG Severity - BORDERLINE ECG - EKG Impression: SINUS RHYTHM EKG Impression: NON-SPECIFIC ST ELEVATION INFERIOR LEADS < 1MM WITH q WAVES INFERIOR. EKG Impression: POSSIBLE OLD INFERIOR PA. Electronically Signed By: Jose Rivera 19-May-2017 16:20:16
[2017-05-19] MEDS: PANTOPRAZOLE SODIUM 40 MG TAB PO SCH (08:53)
[2017-05-19] MEDS: FUROSEMIDE 40 MG TAB PO SCH (08:53)
[2017-05-19] MEDS: POTASSIUM CL 20 MEQ TAB PO SCH (08:53)
[2017-05-19] MEDS: ASPIRIN 81 MG CHEWABLE TAB PO SCH (08:54)
[2017-05-19] MEDS: SENNOSIDES/DOCUSATE SODIUM TAB PO SCH (08:56)
[2017-05-19] MEDS ORDERED: WARFARIN SODIUM 1 MG TAB PO ONE (16:00)
[2017-05-19] MEDS: FINASTERIDE 5 MG TAB PO SCH (20:42)
[2017-05-19] MEDS: TERAZOSIN HCL 5 MG CAP PO SCH (20:42)
[2017-05-19] MEDS: ROSUVASTATIN CALCIUM 20 MG TAB PO SCH (20:42)
[2017-05-20] MEDS: SENNOSIDES/DOCUSATE SODIUM TAB PO SCH (00:01)
[2017-05-20 04:02] LABS: INR 2.03 (0.83-1.16)
[2017-05-20 04:14] VITALS: RESP 20
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
[2017-05-20] MEDS: PANTOPRAZOLE SODIUM 40 MG TAB PO SCH (08:00)
[2017-05-20] MEDS: ASPIRIN 81 MG CHEWABLE TAB PO SCH (08:00)
[2017-05-20] MEDS: FUROSEMIDE 40 MG TAB PO SCH (08:00)
[2017-05-20] MEDS: POTASSIUM CL 20 MEQ TAB PO SCH (08:00)
[2017-05-20 11:12] VITALS: BP 100/55; PULSE 88; TEMP 97.7
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
--- NOTE | 2017-05-20 14:28 | PDHOMEO2F ---
Home Oxygen Face to Face Home Orders: I certify that a physician or a nurse practitioner or physician's administrative assistant data entry has had a [id number] encounter with this patient on the date of this order due to the diagnosis listed, which relates to the primary reason the patient requires home oxygen. Alternative treatments have been tried, or considered, and deemed ineffective. It is anticipated that supplemental oxygen will result in improvement with treatment. 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 Length of time home oxygen needed: 1 month
[2017-05-20 14:38] VITALS: O2SAT 79
[2017-05-20] MEDS ORDERED: WARFARIN SODIUM 1 MG TAB PO ONE (16:00)
--- NOTE | 2017-05-21 09:26 | ASDISCHSUM ---
Discharge Information Plan Status:Home with Home Health Medically Cleared to Leave:05/19/2017 Discharge Date:05/20/2017 04:55 PM CM D/C Disposition:Home, Routine, Self-Care ADT D/C Disposition:[id number] Projected Discharge Date:05/20/2017 11:00 AM Transportation at D/C:Family Discharge Delay Reason: Follow-Up Date:05/20/2017 11:00 AM Discharge Slot: Final Diagnosis: Placement Information Referral Type:*Home Health Care Services Referral ID:[id number] Provider Name:[facility] Address 1:[address] Phone Number: Address 2: Fax Number: City:[place] Selection Factors: State:[place] Patient Contact Information Contact Name:SOHAIL Relationship: Address:[address] Work Phone: City:[facility] Phone: State/Zip Code:[place] [address] Email: Financial Information Financial Class: Primary Plan Desc:MEDICARE INPATIENT Primary Plan Number:[id number] Secondary Plan Desc:[employer]/MDR SUPPLEMENT Secondary Plan Number:[id number] Assessment Information [facility] Initial CM Assessment Living Arrangements What is your living Answers: With Spouse arrangement? Who do you live with? Type Of Residence What kind of residence do Answers: House you live in? Discharge Plan Comments Coordination Status Comments Notes: Pt is a 86 y/o man admitted for MR, TR, AI, CAD and A-Fib. Pt is scheduled to have open heart surgery today. Prior to coming to the hospital pt was living independently w/ his . Needs are TBD at this time. CM to follow once out of surgery. Plan: TBD Date Signed: 05/14/2017 09:52 AM Electronically Signed By:IRENE Alarcon [facility] CM Progress Note CM Note CM Note Notes: 05/17/2017 Case Management Note Reviewed chart, spoke with RN and PT. Pt has strong family support. PT recommending home with 24 hour supervision and family is capable of providing that level of care. Case Management d/c poc: anticipating home with family support with eventual cardiac outpatient rehab. Case Management to follow. Date Signed: 05/17/2017 02:03 PM Electronically Signed By:Jeni Mcgee RN Case Management Discharge Plan Note Case Management Discharge Discharge Order Complete? Answers: Yes Patient to Obtain Answers: via Family Medications Transportation Arranged Answers: Family/Friends EMTALA Complete Answers: No Case Management Transport Answers: No Form Complete Faxed Final Orders Answers: Yes Agency/Facility Transfer Answers: Yes Report Printed & Faxed to Receiving Agency Family Notified Answers: No Discharge Comments Notes: BLAKE spoke w/ HENRY Mendoza regarding d/c POC. Reji is requesting for pt to d/c with HC, RN and PT. Pt will start outpatient cardiac rehab on 06/01 at the [facility]. Pt is being discharged today. BLAKE met w/ pt and family for dispo planning. Pt and family are agreeable to having HC. Referrals made to the [facility] for HC. Family did not have a speciifc preference on HC agencies. [facility] is able to accept pt for services. Tre will be contacting pt and family directly to schedule start of care. DC orders sent to complete. CM available for changes. Plan: Complete; PT and RN Date Signed: 05/20/2017 12:40 PM Electronically Signed By:IRENE Alarcon Intervention Information Intervention Type:*IM-Signed Date of Service:05/20/2017 03:33 PM Patient Type:Inpatient Staff Member:Janneth Holcomb Hours: Discipline: Severity: Comment:
== END 2017-05-20 16:55 | disposition home health service (06) | DRG 217 ==
LOC: FCATH 09:10 → F2W 10:37 → UNDODISIN 05-14 09:35 → F2N 05-14 09:35 → F2W 05-16 12:01
PROVIDERS: ADMIT Internal Medicine Cardiovascular Disease; ATTEND Thoracic Surgery (Cardiothoracic Vascular Surgery)
PROC: B2111ZZ Fluoroscopy of Multiple Coronary Arteries using Low Osmolar Contrast (ICD-10-PCS; 2017-05-13)
PROC: 4A023N8 Measurement of Cardiac Sampling and Pressure, Bilateral, Percutaneous Approach (ICD-10-PCS; 2017-05-13)
PROC: B2151ZZ Fluoroscopy of Left Heart using Low Osmolar Contrast (ICD-10-PCS; 2017-05-13)
PROC: 30233N1 Transfusion of Nonautologous Red Blood Cells into Peripheral Vein, Percutaneous Approach (ICD-10-PCS; principal; 2017-05-14 07:15)
PROC: 02Q Heart and Great Vessels, Repair (ICD-10-PCS; principal; 2017-05-14 07:15)
PROC: 02580ZZ Destruction of Conduction Mechanism, Open Approach (ICD-10-PCS; principal; 2017-05-14 07:15)
PROC: 02QJ0ZZ Repair Tricuspid Valve, Open Approach (ICD-10-PCS; principal; 2017-05-14 07:15)
PROC: 5A1221Z Performance of Cardiac Output, Continuous (ICD-10-PCS; principal; 2017-05-14 07:15)
PROC: 02QG0ZZ Repair Mitral Valve, Open Approach (ICD-10-PCS; principal; 2017-05-14 07:15)
PROC: 02RF08Z Replacement of Aortic Valve with Zooplastic Tissue, Open Approach (ICD-10-PCS; principal; 2017-05-14 07:15)
PROC: B246ZZ4 Ultrasonography of Right and Left Heart, Transesophageal (ICD-10-PCS; principal; 2017-05-14 07:15)
PROC: 02100Z9 Bypass Coronary Artery, One Artery from Left Internal Mammary, Open Approach (ICD-10-PCS; principal; 2017-05-14 07:15)
PROC: 02L70ZK Occlusion of Left Atrial Appendage, Open Approach (ICD-10-PCS; principal; 2017-05-14 07:15)
DX: I35.1 Nonrheumatic aortic (valve) insufficiency (principal); I34.0 Nonrheumatic mitral (valve) insufficiency; I36.1 Nonrheumatic tricuspid (valve) insufficiency; I27.29 Other secondary pulmonary hypertension; I77.810 Thoracic aortic ectasia; I48.1 Persistent atrial fibrillation; I25.10 Atherosclerotic heart disease of native coronary artery without angina pectoris; I50.32 Chronic diastolic (congestive) heart failure; D62 Acute posthemorrhagic anemia; K21.9 Gastro-esophageal reflux disease without esophagitis
CPT/HCPCS: 82947-QW; 97116-GP; 97161-GP; 97165-GO; 97530-GP; 97535-GO; C1768; G8978-GP-CK; G8979-GP-CJ; G8987-GO-CK; G8988-GO-CI; G8989-GO-CI; J0153; J0282; J0690; J1265; J1644; J1815; J1885; J1940; J2001; J2150; J2250; J2260; J2370; J2405; J2440; J2704; J2720; J2930; J3010; J3490; J7060; P9016; P9041; Q9967

== ENCOUNTER → 2017-05-25 | Outpatient (CLI) | payer OTHER, MEDICARE | LOC: FIMAGING 10:13 | PROVIDERS: ATTEND Thoracic Surgery (Cardiothoracic Vascular Surgery) | DX: Z86.79 Personal history of other diseases of the circulatory system (principal); Z95.1 Presence of aortocoronary bypass graft; Z95.2 Presence of prosthetic heart valve; J90 Pleural effusion, not elsewhere classified ==

== ENCOUNTER → 2017-06-01 | Outpatient (CLI) | payer OTHER, MEDICARE | LOC: FIMAGING 08:34 | PROVIDERS: ATTEND Thoracic Surgery (Cardiothoracic Vascular Surgery) | DX: J90 Pleural effusion, not elsewhere classified (principal); Z95.1 Presence of aortocoronary bypass graft; Z95.2 Presence of prosthetic heart valve ==

== ENCOUNTER → 2017-06-08 | Outpatient (CLI) | payer OTHER, MEDICARE | LOC: FIMAGING 09:32 | PROVIDERS: ATTEND Thoracic Surgery (Cardiothoracic Vascular Surgery) | DX: Z09 Encounter for follow-up examination after completed treatment for conditions other than malignant neoplasm (principal); J90 Pleural effusion, not elsewhere classified; J98.11 Atelectasis ==

== ENCOUNTER → 2017-06-16 | Outpatient (CLI) | payer OTHER, MEDICARE | LOC: BHLMT 11:30 | PROVIDERS: ATTEND Internal Medicine Interventional Cardiology | DX: I25.10 Atherosclerotic heart disease of native coronary artery without angina pectoris (principal); I10 Essential (primary) hypertension; I38 Endocarditis, valve unspecified; E78.00 Pure hypercholesterolemia, unspecified | CPT/HCPCS: 93005-PO ==

== ENCOUNTER → 2017-08-19 | Outpatient (CLI) | payer OTHER, MEDICARE | LOC: BHLMT 15:30 | PROVIDERS: ATTEND Thoracic Surgery (Cardiothoracic Vascular Surgery) | DX: I48.91 Unspecified atrial fibrillation (principal) | CPT/HCPCS: 93225-PO; 93226-PO ==

== ENCOUNTER → 2018-03-01 | Outpatient (CLI) | payer OTHER, MEDICARE | LOC: BHFA 13:00 | PROVIDERS: ATTEND Thoracic Surgery (Cardiothoracic Vascular Surgery) | DX: I48.91 Unspecified atrial fibrillation (principal); Z98.890 Other specified postprocedural states | CPT/HCPCS: 93225-PO; 93226-PO ==